=== PATIENT | male | born 1955 | race Caucasian/White ===

== ENCOUNTER 2023-05-02 14:21 | Inpatient (IN) | payer OTHER, SELFPAY ==
[2023-05-02] VITALS (14 sets, daily range): BP systolic 162–223; BP diastolic 60–78; PULSE 69–92; RESP 14–26; TEMP 36.8–38; O2SAT 88–97; BMI 49.5; BMI 48.2
[2023-05-02 14:40] LABS: Glucometer 46 mg/dL (74-106)
--- NOTE | 2023-05-02 14:44 | ED_ITS ---
HPI - General Adult General Chief complaint: Extremity Problem, Nontraumatic Stated complaint: RED SWOLLEN PAIN IN FOOT Time Seen by Provider: 05/02/23 14:32 Source: patient Mode of arrival: ambulance History of Present Illness HPI narrative: left leg infection that is getting worse despite antibiotics. He was brought to us by EMS complaining that his left lower leg is more swollen and that the redness is spreading. He had [facility] and had completed the full course without any improvement, he told us. He denied any systemic symptoms such as fever or vomiting. No left calf or knee pain. PMHx includes IDDM and he told us that he had stopped his insulin for 3-4 days because my sugars have been OK . He restarted his insulin last night around 830pm and this morning his sugar dropped to 46. He ate and said that after that he felt fine . But when the patient arrived his glucose was only 46 once again. he was fed and given juice to drink. PMHx includes remote history of DVT. He currently takes warfarin. Most of his care is through the [place]. Related Data Home Medications Medication Instructions Recorded Confirmed budesonide-formoterol HFA 80 2 inh inhalation Q12H 05/02/23 05/02/23 mcg-4.5 mcg/actuation aerosol inhaler (Symbicort) chlorthalidone 50 mg tablet 50 mg PO DAILY 05/02/23 05/02/23 glipizide 10 mg tablet 10 mg PO DAILY 05/02/23 05/02/23 lisinopril 40 mg tablet 40 mg PO DAILY 05/02/23 05/02/23 metoprolol tartrate 25 mg tablet 12.5 mg PO BID 05/02/23 05/02/23 omeprazole 20 mg tablet,delayed 20 mg PO DAILY 05/02/23 05/02/23 release warfarin 5 mg tablet 5 mg PO DAILY 05/02/23 05/02/23 Allergies Allergy/AdvReac Type Severity Reaction Status Date / Time adhesive tape Allergy Mild Verified 05/02/23 14:23 [facility] Social History Smoking status: Current every day smoker Exam Narrative Exam Narrative: Nurses notes and vital signs reviewed and patient is not hypoxic. afebrile General: Morbidly obese elderly male. Well-appearing and in no apparent distress. Skin: Warm, dry, no pallor noted. Left lower leg has a deep, erythematous skin discoloration extending from the toes of the left foot, proximally, to the proximal left lower leg just distal to the left knee. Head: Normocephalic, atraumatic. Neck: Supple, non-tender. Eye: Pupils are equal, round and EOMI. No scleral icterus. Ears, Nose, Mouth, and Throat: Oral mucosa is moist Cardiovascular: Regular Rate and Rhythm without murmur, gallop or rub. Respiratory: No accessory muscle use or respiratory distress. Lungs are clear to auscultation, no wheezing, rales or rhonchi Musculoskeletal: normal ROM, no calf or popliteal tenderness. skin color of left lower leg is described above. Neurological: A&O x4. No cranial nerve dysfunction observed. No truncal ataxia. Moves all extremities. Sensation intact. Psychiatric: Cooperative and interactive. Normal mood and affect. Constitutional Vital Signs - 24 hr 05/02/23 14:23 Temperature 98.3 F Pulse Rate [Monitor] 69 Respiratory Rate 20 Blood Pressure [Right Arm] 162/78 H Pulse Oximetry 97 Oxygen Delivery Method Room Air Course Vital Signs Vital signs: Vital Signs Temperature 98.3 F 05/02/23 14:23 Pulse Rate 69 05/02/23 14:23 Respiratory Rate 20 05/02/23 14:23 Blood Pressure 162/78 H 05/02/23 14:23 Pulse Oximetry 97 05/02/23 14:23 Oxygen Delivery Method Room Air 05/02/23 14:23 Temperature 98.3 F 05/02/23 14:23 Pulse Rate 69 05/02/23 14:23 Respiratory Rate 20 05/02/23 14:23 Blood Pressure 162/78 H 05/02/23 14:23 Pulse Oximetry 97 05/02/23 14:23 Oxygen Delivery Method Room Air 05/02/23 14:23 Medical Decision Making MDM Narrative Medical decision making narrative: peripheral IV ordered to be established so that he could get the IV Zosyn that I ordered. There was a lot of difficulty getting IV access but the nurses were able to get a 24G peripheral IV. Blood ordered to be drawn and sent for testing including Lactate and blood cultures. Left LE US performed to evaluate for DVT - no DVT found. He takes warfarin daily and INR was checked - elevated greater than 3 - coumadin will be held tomorrow. Patient failed out-patient treatment with oral Keflex, his condition worsened and he will need to be admitted. Call placed to Dr Abbott, the on-call hospitalist, to discuss admission. After reviewing the patient's case she agreed to admit the patient, in-patient, med/surg floor. Patient made aware and was agreeable to admission. Medical Records Medical records reviewed: Yes I reviewed the patient's medical records Lab Data Lab results reviewed: Yes I reviewed the patient's lab results Labs: Lab Results 05/02/23 05/02/23 05/02/23 Range/Units 14:30 14:57 15:18 WBC 11.3 H (4.0-11.0) 10^3/uL RBC 4.68 L (4.70-6.10) 10^6/uL Hgb 13.1 L (14.0-18.0) g/dL Hct 42.1 (42.0-54.0) % MCV 90.0 (80.0-94.0) fL MCH 28.0 (25.9-34.0) pg MCHC 31.1 (29.9-35.2) g/dL RDW 16.4 H (11.0-15.0) % Plt Count 165 (150-450) 10^3/uL MPV 9.0 L (9.5-13.5) fL Neut % (Auto) 88.6 H (43.0-75.0) % Lymph % (Auto) 3.3 L (20.5-60.0) % [place] % (Auto) 7.3 (1.7-12.0) % Eos % (Auto) 0.0 L (0.9-7.0) % Baso % (Auto) 0.2 (0.2-2.0) % Neut # (Auto) 10.0 H (1.4-6.5) 10^3/uL Lymph # (Auto) 0.4 L (1.2-3.8) 10^3/uL [place] # (Auto) 0.8 (0.3-0.8) 10^3/uL Eos # (Auto) 0.0 (0.0-0.7) 10^3/uL Baso # (Auto) 0.0 (0.0-0.1) 10^3/uL Abs Immat Gran (auto) 0.07 H (0.00-0.03) 10^3/uL Imm/Tot Granulo (auto) 0.6 H (0.0-0.5) % PT 35.9 H (9.0-11.6) sec INR 3.64 APTT 57.2 H* (22.3-36.2) sec Sodium 136 (136-145) mmol/L Potassium 5.2 H (3.5-5.1) mmol/L Chloride 103 (98-107) mmol/L Carbon Dioxide 23.2 (21.0-32.0) mmol/L Anion Gap 15.0 BUN 55.0 H (7.0-18.0) mg/dL Creatinine 4.20 H (0.70-1.30) mg/dL Est GFR ( Amer) 17 L (>=60) Est GFR (Non-Af Amer) 14 L (>=60) BUN/Creatinine Ratio 13.1 Glucose 81 (74-106) mg/dL Lactate 2.1 H (0.4-2.0) mmol/L Calcium 8.9 (8.5-10.1) mg/dL Total Bilirubin 0.7 (0.2-1.0) mg/dL AST 24 (15-37) U/L ALT 22 (16-63) U/L Alkaline Phosphatase 70 (46-116) U/L Total Protein 6.8 (6.4-8.2) g/dL Albumin 2.1 L (3.4-5.0) g/dL Globulin 4.7 g/dL Albumin/Globulin Ratio 0.4 POC Glucose 46 L* 54 L (74-106) mg/dL 05/02/23 Range/Units 15:59 WBC (4.0-11.0) 10^3/uL RBC (4.70-6.10) 10^6/uL Hgb (14.0-18.0) g/dL Hct (42.0-54.0) % MCV (80.0-94.0) fL MCH (25.9-34.0) pg MCHC (29.9-35.2) g/dL RDW (11.0-15.0) % Plt Count (150-450) 10^3/uL MPV (9.5-13.5) fL Neut % (Auto) (43.0-75.0) % Lymph % (Auto) (20.5-60.0) % [place] % (Auto) (1.7-12.0) % Eos % (Auto) (0.9-7.0) % Baso % (Auto) (0.2-2.0) % Neut # (Auto) (1.4-6.5) 10^3/uL Lymph # (Auto) (1.2-3.8) 10^3/uL [place] # (Auto) (0.3-0.8) 10^3/uL Eos # (Auto) (0.0-0.7) 10^3/uL Baso # (Auto) (0.0-0.1) 10^3/uL Abs Immat Gran (auto) (0.00-0.03) 10^3/uL Imm/Tot Granulo (auto) (0.0-0.5) % PT (9.0-11.6) sec INR APTT (22.3-36.2) sec Sodium (136-145) mmol/L Potassium (3.5-5.1) mmol/L Chloride (98-107) mmol/L Carbon Dioxide (21.0-32.0) mmol/L Anion Gap BUN (7.0-18.0) mg/dL Creatinine (0.70-1.30) mg/dL Est GFR ( Amer) (>=60) Est GFR (Non-Af Amer) (>=60) BUN/Creatinine Ratio Glucose (74-106) mg/dL Lactate (0.4-2.0) mmol/L Calcium (8.5-10.1) mg/dL Total Bilirubin (0.2-1.0) mg/dL AST (15-37) U/L ALT (16-63) U/L Alkaline Phosphatase (46-116) U/L Total Protein (6.4-8.2) g/dL Albumin (3.4-5.0) g/dL Globulin g/dL Albumin/Globulin Ratio POC Glucose 117 H (74-106) mg/dL Imaging Data left LE USMAN US: Radiologist's impression: Patient Name: TERYR DOMINGUEZ MRN: [facility]:[id number] date: 1955 Sex: M Assigned Patient Location: ED.MAIN Current Patient Location: ER Accession/Order Number: [id number] Exam Date: 05/02/2023 16:09 Report Date: 05/02/2023 16:44 At the request of: GABY LEVINE Procedure: US venous doppler LE LT EXAM: US venous doppler LE LT HISTORY: left LE cellulitis, swelling COMPARISON: None. TECHNIQUE: Evaluation of the deep veins of the left lower extremity was performed utilizing B-mode, color flow and spectral analysis. FINDINGS: The visualized vessels comprising the deep venous systems from the common femoral vein through the calf veins demonstrate appropriate compressibility, spontaneous color Doppler flow, and augmentation of flow on spectral Doppler with distal compression. Additional findings: Lower extremity edema is noted. IMPRESSION: No sonographic evidence of deep venous thrombosis of the left lower extremity. Lower extremity edema, may represent cellulitis. Electronically authenticated by: KIERSTEN HIDALGO Date: 05/02/2023 16:44 Discharge Plan Discharge Chief Complaint: Extremity Problem, Nontraumatic Clinical Impression: Cellulitis, Hypoglycemia Patient Disposition: Admitted As Inpatient Time of Disposition Decision: 16:18
[2023-05-02 14:59] LABS: Glucometer 54 mg/dL (74-106)
[2023-05-02] MEDS: PIPERACILLIN SODIUM/TAZOBACTAM 4.5 GM in 0.9 % SODIUM CHLORIDE 50 ML IV (15:19)
[2023-05-02 15:26] LABS: Basophils Percent Auto 0.2 % (0.2-2.0); Hematocrit 42.1 % (42.0-54.0); Hemoglobin 13.1 g/dL (14.0-18.0); Immature Granulocytes Abs Auto 0.07 10^3/uL (0.00-0.03); Immature Granulocytes Pct Auto 0.6 % (0.0-0.5); Lymphocytes Absolute Auto 0.4 10^3/uL (1.2-3.8); Lymphocytes Percent Auto 3.3 % (20.5-60.0); Mean Corpuscular HGB Conc 31.1 g/dL (29.9-35.2); Monocytes Absolute Auto 0.8 10^3/uL (0.3-0.8); Monocytes Percent Auto 7.3 % (1.7-12.0); Neutrophils Percent Auto 88.6 % (43.0-75.0); Platelet Count 165 10^3/uL (150-450); Red Blood Count 4.68 10^6/uL (4.70-6.10); Red Cell Distribution Width 16.4 % (11.0-15.0); White Blood Count 11.3 10^3/uL (4.0-11.0)
--- NOTE | 2023-05-02 15:44 | US_ITS ---
[facility] [place] [id number] Patient Name: TERRY DOMINGUEZ MRN: [id number] date: 1955 Sex: M Assigned Patient Location: ED.MAIN Current Patient Location: ER Accession/Order Number: [id number] Exam Date: 05/02/2023 16:09 Report Date: 05/02/2023 16:44 At the request of: GABY LEVINE Procedure: US venous doppler LE LT EXAM: US venous doppler LE LT HISTORY: left LE cellulitis, swelling COMPARISON: None. TECHNIQUE: Evaluation of the deep veins of the left lower extremity was performed utilizing B-mode, color flow and spectral analysis. FINDINGS: The visualized vessels comprising the deep venous systems from the common femoral vein through the calf veins demonstrate appropriate compressibility, spontaneous color Doppler flow, and augmentation of flow on spectral Doppler with distal compression. Additional findings: Lower extremity edema is noted. IMPRESSION: No sonographic evidence of deep venous thrombosis of the left lower extremity. Lower extremity edema, may represent cellulitis. Electronically authenticated by: KIERSTEN HIDALGO Date: 05/02/2023 16:44
[2023-05-02 15:47] LABS: Lactate/Lactic Acid 2.1 mmol/L (0.4-2.0)
[2023-05-02] MEDS: DEXTROSE 50 %-WATER 25 GM/50 ML SYRINGE IV (15:51)
[2023-05-02 16:02] LABS: Alanine Aminotransferase 22 U/L (16-63); Albumin Globulin Ratio 0.4; Albumin Level 2.1 g/dL (3.4-5.0); Alkaline Phosphatase 70 U/L (46-116); Aspartate Amino Transferase 24 U/L (15-37); BUN Creatinine Ratio 13.1; Bilirubin Total 0.7 mg/dL (0.2-1.0); Calcium 8.9 mg/dL (8.5-10.1); Carbon Dioxide 23.2 mmol/L (21.0-32.0); Chloride 103 mmol/L (98-107); Estimated GFR (African America 17 (>=60); Estimated GFR (Non-African Ame 14 (>=60); Globulin 4.7 g/dL; Glucose 81 mg/dL (74-106); Potassium 5.2 mmol/L (3.5-5.1); Sodium 136 mmol/L (136-145); Total Protein 6.8 g/dL (6.4-8.2)
[2023-05-02 16:03] LABS: Glucometer 117 mg/dL (74-106)
[2023-05-02 16:40] LABS: INR 3.64; Prothrombin Time 35.9 sec (9.0-11.6)
[2023-05-02 16:42] LABS: Partial Thromboplastin Time 57.2 sec (22.3-36.2)
[2023-05-02] MEDS: LACTATED RINGER'S SOLUTION 1,000 ML 125 ML IV (18:32)
--- NOTE | 2023-05-02 19:20 | P.PN_ITS ---
Progress Note: Subjective Subjective Interval history: LLE swelling, low BGL HPI: this is a 68 yo male who presents with above complaints. Patient developed left leg infection that is getting worse despite Keflex prescribed at [place]..? He was brought to us by EMS complaining that his left lower leg is more swollen and that the redness is spreading.? He had completed the full course without any improvement, he told us.? He denied any systemic symptoms such as fever or vomiting.? No left calf or knee pain.? PMHx includes IDDM and he told us that he had stopped his insulin for 3-4 days because my sugars have been OK .? He restarted his insulin last night around 830pm and this morning his sugar dropped to 46.? He ate and said that after that he felt fine . IN ED on arrival his glucose was only 46 once again.? He was fed and given juice to drink. He also found to be hyperkalemia. After initial Rx decision was made to admit him to the hospit. Exam Narrative Exam Narrative: NAD, neck - supple, thyroid not enlarged, LN not palpated CTA B/L S1 S2 ABd - S/NT/ND/+BS EXT -no clubbing ro cyanosis. ++ LLE edema Neuro - CN II-XI grossly intact, no focal deficites NOrmal affect Constitutional Vital Signs - 24 hr 05/02/23 14:23 05/02/23 17:01 05/02/23 18:23 Temperature 98.3 F 98.3 F Pulse Rate Pulse Rate [Monitor] 69 76 84 Respiratory Rate 20 20 Blood Pressure [Right Arm] 162/78 H 170/60 H Pulse Oximetry 97 92 L 90 L Oxygen Delivery Method Room Air Room Air Room Air 05/02/23 18:28 Temperature 98.6 F Pulse Rate 84 Pulse Rate [Monitor] Respiratory Rate 20 Blood Pressure [Right Arm] 217/69 H Pulse Oximetry 91 L Oxygen Delivery Method Room Air Progress Note: Objective Labs Labs: Short CBC 05/02/23 Range/Units 15:18 WBC 11.3 H (4.0-11.0) 10^3/uL Hgb 13.1 L (14.0-18.0) g/dL Hct 42.1 (42.0-54.0) % Plt Count 165 (150-450) 10^3/uL BMP 05/02/23 15:18 Sodium 136 Potassium 5.2 H Chloride 103 Carbon Dioxide 23.2 BUN 55.0 H Creatinine 4.20 H Glucose 81 Calcium 8.9 Liver Function 05/02/23 Range/Units 15:18 Total Bilirubin 0.7 (0.2-1.0) mg/dL AST 24 (15-37) U/L ALT 22 (16-63) U/L Alkaline Phosphatase 70 (46-116) U/L Albumin 2.1 L (3.4-5.0) g/dL Progress Note: A&P Assessment and Plan (1) SHAHEEN (acute kidney injury): Assessment and Plan: started on IVF - monitor BUN/CR avoid use of nephrotoxic medications (2) Hyperkalemia: Assessment and Plan: Hopefuly going to resolve with use of insulin (3) Cellulitis: Assessment and Plan: started on empiric, broad spectrum ABxs Patient fail OP ABxs management (4) Hypoglycemia: Assessment and Plan: hypoglycemia protocol in place (5) Diabetes: Assessment and Plan: accuchecks, TID AC + HS, cover with ISS (6) HTN (hypertension): Assessment and Plan: resume home Rx, adjust as needed (7) Morbid obesity: Assessment and Plan: differ for OP management (8) Venous (peripheral) insufficiency: Assessment and Plan: differ for OP management Telemedicine Attestation Telemedicine Attestation I conducted this encounter from [place][] via secure live, [id number] video conference with the patient, CHARGE TEST-CHARGES located at [facility] with [Cellulitis]. Prior to the interview, the risks and benefits of telemedicine were discussed with the patient and verbal consent was obtained.
[2023-05-02] MEDS: ALBUTEROL SULFATE 2.5 MG/3 ML VIAL NEB IH (21:59)
[2023-05-02] MEDS: BUDESONIDE 0.5 MG/2 ML AMPULE NEB IH (21:59)
[2023-05-02 22:14] LABS: Glucometer 63 mg/dL (74-106)
[2023-05-02] MEDS: METOPROLOL TARTRATE 25 MG TABLET 12.5 MG PO (22:34)
[2023-05-02 22:40] LABS: Glucometer 73 mg/dL (74-106)
[2023-05-02] MEDS: HYDRALAZINE HCL 20 MG/ML VIAL 10 MG IVP (22:42)
[2023-05-02] MEDS: PANTOPRAZOLE SODIUM 40 MG VIAL IV (23:28)
[2023-05-02] MEDS: LINEZOLID IN DEXTROSE 5% 600 MG/300 ML PIGGYBACK 300 MG IV (23:28)
[2023-05-02] MEDS: ACETAMINOPHEN 325 MG TABLET 650 MG PO (23:39)
[2023-05-03] VITALS (25 sets, daily range): BP systolic 145–160; BP diastolic 63–77; PULSE 59–84; RESP 18–22; TEMP 36.7–37.1; O2SAT 90–98; BMI 48.2
[2023-05-03] MEDS: PIPERACILLIN SODIUM/TAZOBACTAM 2.25 GM in 0.9 % SODIUM CHLORIDE 50 ML IV ×3 (00:56→22:18)
--- NOTE | 2023-05-03 01:17 | PC.NURSE ---
Pt BP was elevated, admin of hydralizine brought down to 162/72 from 223/76
[2023-05-03 05:00] LABS: Basophils Percent Auto 0.2 % (0.2-2.0); Eosinophils Percent Auto 0.2 % (0.9-7.0); Hemoglobin 11.2 g/dL (14.0-18.0); Immature Granulocytes Abs Auto 0.11 10^3/uL (0.00-0.03); Immature Granulocytes Pct Auto 0.9 % (0.0-0.5); Lymphocytes Absolute Auto 0.7 10^3/uL (1.2-3.8); Lymphocytes Percent Auto 5.1 % (20.5-60.0); Mean Corpuscular HGB Conc 31.1 g/dL (29.9-35.2); Mean Platelet Volume 9.9 fL (9.5-13.5); Monocytes Absolute Auto 1.1 10^3/uL (0.3-0.8); Monocytes Percent Auto 8.2 % (1.7-12.0); Neutrophils Percent Auto 85.4 % (43.0-75.0); Platelet Count 158 10^3/uL (150-450); Red Cell Distribution Width 16.3 % (11.0-15.0); White Blood Count 12.8 10^3/uL (4.0-11.0)
[2023-05-03] MEDS: ALBUTEROL SULFATE 2.5 MG/3 ML VIAL NEB IH ×4 (05:00→20:13)
[2023-05-03 05:17] LABS: Estimated Average Glucose 134 mg/dL; Glycohemoglobin A1C 6.3 % (4.5-6.2)
[2023-05-03 05:25] LABS: Alanine Aminotransferase 21 U/L (16-63); Albumin Globulin Ratio 0.4; Albumin Level 1.5 g/dL (3.4-5.0); Alkaline Phosphatase 60 U/L (46-116); Anion Gap 11.8; Aspartate Amino Transferase 32 U/L (15-37); BUN Creatinine Ratio 11.9; Bilirubin Total 0.8 mg/dL (0.2-1.0); Carbon Dioxide 23.9 mmol/L (21.0-32.0); Chloride 105 mmol/L (98-107); Estimated GFR (African America 17 (>=60); Estimated GFR (Non-African Ame 14 (>=60); Glucose 142 mg/dL (74-106); Potassium 4.7 mmol/L (3.5-5.1); Sodium 136 mmol/L (136-145); Total Protein 5.5 g/dL (6.4-8.2)
[2023-05-03 05:36] LABS: INR 3.44
[2023-05-03] MEDS: LACTATED RINGER'S SOLUTION 1,000 ML 125 ML IV ×3 (07:44→22:19)
--- NOTE | 2023-05-03 08:24 | P.HP_ITS ---
H&P: HPI History of Present Illness Chief complaint: RED SWOLLEN FOOT, LT LOWER EXTREMITY CELLULITIS Narrative: patient is a 5-year-old male with past medical history of type 2 diabetes insulin-dependent, chronic kidney disease stage IV, history of blood clots and is on Coumadin therapy, GERD. Patient presented too the Emergency Room yesterday with complaints of significant left lower extremity redness swelling and pain. He denies any fevers or chills but states that his left leg has been difficult to walk on. He gets most of his care from the [place] and that's where he sees his primary care physician he also sees a process environmental technician. He is a smoker and smokes about one pack per day but in the last week has cut down to half a pack per day. He has been using Lantus twenty units once a day and over the last four days has not taken any insulin because his sugars have been lower. The night prior to coming to the Emergency Room he did decide to take his Lantus and woke up and his sugars were in the 40s. They did give him some orange juice and some glucose to bring his sugars up. This morning he reports improvement of the symptoms of the redness and rash of his left lower extremity. He denies any fevers or chills. Review of Systems ROS Narrative ROS: a complete review of systems were reviewed with patient and are positive as below or listed in History of Chief Complaint. General: no fever, chills, night sweats Head: no headache, trauma, visual changes, nausea or vomiting Skin: left lower extremity rash, itching and blisters Eyes: no blurriness of vision Ears: no reported hearing loss, vertigo, earache, or tinnitus Throat: no sore throat, hoarseness, swelling of neck, or tongue pain Heart: no chest pain Lungs: shortness of breath or cough GI: no diarrhea or vomiting/nausea Urinary: no urinary urgency, frequency or pain Neuro: no numbness or tingling HEM: no bleeding issues or bruising ENDO: no thyroid problems Psych: no anxiety or depression PFSH PFSH Social History Smoking status: Current every day smoker Meds Home Medications and Allergies Home Medications Medication Instructions Recorded Confirmed Type Iro-Plex (iron polysaccharide) See Rx Instructions .Route .COMPLEX 05/02/23 05/02/23 History atorvastatin 40 mg tablet 40 mg PO DAILY 05/02/23 05/02/23 History budesonide-formoterol HFA 80 2 inh inhalation Q12H 05/02/23 05/02/23 History mcg-4.5 mcg/actuation aerosol inhaler (Symbicort) glipizide 10 mg tablet 20 mg PO DAILY 05/02/23 05/02/23 History hydralazine 10 mg tablet 10 mg PO BID 05/02/23 05/02/23 History lisinopril 40 mg tablet 40 mg PO DAILY 05/02/23 05/02/23 History metoprolol tartrate 25 mg tablet 12.5 mg PO BID 05/02/23 05/02/23 History torsemide 20 mg tablet (Soaanz) 20 mg PO DAILY 05/02/23 05/02/23 History warfarin 5 mg tablet 5 mg PO DAILY 05/02/23 05/02/23 History Allergies Allergy/AdvReac Type Severity Reaction Status Date / Time adhesive tape Allergy Mild Verified 05/02/23 14:23 Exam Narrative Exam Narrative: General: Patient is alert, and oriented to person, place and time with normal affect, proper hygiene Skin: patient has bilateral stasis dermatitis with +1 pitting edema, erythema with blisters formation on the left lower extremity extending from below the knee to the top of left foot. Head: atraumatic, acephalic Eyes: PERRLA, no nystagmus present, conjunctiva clear, no scleral icterus Ears: normal gross auditory acuity Nose: symmetric, no discharge, no maxillary or frontal sinus tenderness Heart: Normal rate and rhythm, no murmurs/rubs/gallops Lungs: audible wheezes, no crackles and normal breath sounds all lung becerra Abdomen: Normal audible bowel sounds, no distension, No palpable masses, no organomegaly, no rebound/guarding/ or rigidity Musculoskeletal: muscle atrophy noted, ROM is limited due to being in hospital bed, no swelling bilateral lower extremities Vascular: Normal carotid, radial, femoral, posterior tibial, and dorsalis pedis pulses Lymph: no supraclavicular, axillary, or anterior/posterior cervical adenopathy Neuro: CN II-X grossly intact, normal sensation upper and lower extremities Constitutional Vital Signs - 24 hr 05/02/23 14:23 05/02/23 17:01 05/02/23 18:23 Temperature 98.3 F 98.3 F Pulse Rate Pulse Rate [Monitor] 69 76 84 Respiratory Rate 20 20 Blood Pressure Blood Pressure [Right Arm] 162/78 H 170/60 H Pulse Oximetry 97 92 L 90 L Oxygen Delivery Method Room Air Room Air Room Air Oxygen Delivery Flow Rate 05/02/23 18:28 05/02/23 19:18 05/02/23 18:23 Temperature 98.6 F Pulse Rate 84 80 Pulse Rate [Monitor] Respiratory Rate 20 14 Blood Pressure Blood Pressure [Right Arm] 217/69 H Pulse Oximetry 91 L Oxygen Delivery Method Room Air Oxygen Delivery Flow Rate 05/02/23 20:00 05/02/23 19:00 05/02/23 21:58 Temperature 100.4 F H Pulse Rate 80 83 87 Pulse Rate [Monitor] Respiratory Rate 20 Blood Pressure Blood Pressure [Right Arm] 223/72 H Pulse Oximetry 91 L Oxygen Delivery Method Room Air Oxygen Delivery Flow Rate 05/02/23 21:59 05/02/23 22:07 05/02/23 22:07 Temperature Pulse Rate 89 89 Pulse Rate [Monitor] Respiratory Rate 24 Blood Pressure Blood Pressure [Right Arm] Pulse Oximetry 88 L 88 L Oxygen Delivery Method Room Air Room Air Oxygen Delivery Flow Rate 05/02/23 22:22 05/02/23 22:42 05/02/23 22:06 Temperature 98.9 F Pulse Rate 88 92 H Pulse Rate [Monitor] Respiratory Rate 26 H Blood Pressure 195/65 H Blood Pressure [Right Arm] Pulse Oximetry 91 L Oxygen Delivery Method Nasal Cannula Oxygen Delivery Flow Rate 2 05/03/23 00:00 05/03/23 02:00 05/03/23 04:00 Temperature Pulse Rate 84 73 69 Pulse Rate [Monitor] Respiratory Rate Blood Pressure Blood Pressure [Right Arm] Pulse Oximetry Oxygen Delivery Method Oxygen Delivery Flow Rate 05/03/23 05:00 05/03/23 05:13 05/02/23 20:30 Temperature Pulse Rate 70 71 Pulse Rate [Monitor] 84 Respiratory Rate 20 18 Blood Pressure Blood Pressure [Right Arm] Pulse Oximetry 95 Oxygen Delivery Method Oxygen Delivery Flow Rate 05/03/23 05:54 05/03/23 06:00 05/03/23 08:05 Temperature 98.4 F Pulse Rate 73 74 68 Pulse Rate [Monitor] Respiratory Rate 22 Blood Pressure Blood Pressure [Right Arm] 158/63 H Pulse Oximetry 92 L Oxygen Delivery Method Room Air Oxygen Delivery Flow Rate 2 Results Labs Labs: Short CBC 05/02/23 05/03/23 Range/Units 15:18 04:17 WBC 11.3 H 12.8 H (4.0-11.0) 10^3/uL Hgb 13.1 L 11.2 L (14.0-18.0) g/dL Hct 42.1 36.0 L (42.0-54.0) % Plt Count 165 158 (150-450) 10^3/uL BMP 05/02/23 05/03/23 15:18 04:17 Sodium 136 136 Potassium 5.2 H 4.7 Chloride 103 105 Carbon Dioxide 23.2 23.9 BUN 55.0 H 51.0 H Creatinine 4.20 H 4.28 H Glucose 81 142 H Calcium 8.9 8.0 L Liver Function 05/02/23 05/03/23 Range/Units 15:18 04:17 Total Bilirubin 0.7 0.8 (0.2-1.0) mg/dL AST 24 32 (15-37) U/L ALT 22 21 (16-63) U/L Alkaline Phosphatase 70 60 (46-116) U/L Albumin 2.1 L 1.5 L (3.4-5.0) g/dL Assessment and Plan Assessment and Plan (1) Left leg cellulitis: Assessment and Plan: patient was placed on Zyvox and Zosyn secondary to renal impairment and both of these were renally dosed. The area on the left lower extremity was demarcated and appears to be receding this morning. White blood cell count 12.8 and patient has remained afebrile. (2) Acute kidney injury superimposed on chronic kidney disease: Assessment and Plan: patient follows with a process environmental technician, will get documentation on patient's baseline creatinine today is 4.28, GFR 14; patient is not on dialysis Stage IV chronic kidney disease most likely (3) Hyperkalemia: Assessment and Plan: resolved with IVF (4) Hypoglycemia: Assessment and Plan: after home lantus, hold for now, SSI insulin only, ha1c 6.3 (5) Diabetes: Assessment and Plan: hold glipizide and lantus, ssi only based on ha1c this is controlled (6) HTN (hypertension): Assessment and Plan: continue hydralazine, lisinopril, metoprolol (7) Morbid obesity: (8) Venous (peripheral) insufficiency: Assessment and Plan: history of multiple DVT's on coumadin therapy and therapeutic with INR 3.44 continue home dosage Plan patient is a full code patient is inpatient and is expected to stay more than 2 midnights continue coumadin therapy for DVT prophylaxis and is therapeutic
[2023-05-03] MEDS: METOPROLOL TARTRATE 25 MG TABLET 12.5 MG PO ×2 (09:07→20:31)
[2023-05-03] MEDS: LINEZOLID IN DEXTROSE 5% 600 MG/300 ML PIGGYBACK 300 MG IV (10:26)
--- NOTE | 2023-05-03 10:39 | SWNOTE1 ---
SW met with pt to discuss dc needs. Pt does live at home with his daughter. Pt uses a walker at home and it is a 1 story home with a few steps to get in. Pt does not have any HH coming in at this time. He does follow up at the [place] [facility]. Pt denies having any needs or concerns at this time. SW to follow as needed. SW reviewed IMM form with pt. He voiced understanding, no questions/concerns. Pt signed form, original given to pt and copy placed on chart.
[2023-05-03 11:19] LABS: Glucometer 128 mg/dL (74-106)
[2023-05-03] MEDS: BUDESONIDE 0.5 MG/2 ML AMPULE NEB IH ×2 (11:19→20:14)
--- NOTE | 2023-05-03 11:25 | RESP.RT ---
patient placed on room air
--- NOTE | 2023-05-03 12:35 | CM.NOTE ---
Rounds made with Dr. Abbott. No plan for discharge today.
--- NOTE | 2023-05-03 12:49 | SWNOTE1 ---
SW looked over therapy notes and possible HH or skilled recommended.
--- NOTE | 2023-05-03 13:45 | DIETREC ---
Nutrition Recommendations: 1. Check phosphorus level. 2. Change diet to 1800 kcal and 2 gm Sodium. Reviewed with
--- NOTE | 2023-05-03 14:37 | SWNOTE1 ---
FRANKLIN spoke with pt again about his discharge plans. SW let him know that it is recommended pt goes to long term facility for rehab to get stronger, or at least have some HH coming in. FRANKLIN explained the difference between them both and how insurance would cover these options. At this time pt does not want to go to rehab at long term facility, he stated once his foot feels better he will be able to walk around with his walker. Pt is refusing to go skilled at this time. Pt is more open to home health coming in. FRANKLIN reviewed the star ratings from medicare.gov and he would like to use [facility]. FRANKLIN sent referral to [facility].
--- NOTE | 2023-05-03 14:52 | SWNOTE1 ---
Pt does have home cpap as well, he did bring it in with him. No home oxygen.
[2023-05-03 15:57] LABS: Glucometer 138 mg/dL (74-106)
--- NOTE | 2023-05-03 16:02 | RESP.RT ---
heart rate 63
[2023-05-03] MEDS: WARFARIN SODIUM 5 MG TABLET PO (16:26)
[2023-05-03 19:43] LABS: Glucometer 137 mg/dL (74-106)
[2023-05-03] MEDS: LINEZOLID IN DEXTROSE 5% 600 MG/300 ML PIGGYBACK 150 MG IV (20:31)
[2023-05-03] MEDS: PANTOPRAZOLE SODIUM 40 MG VIAL IV (22:18)
[2023-05-04] VITALS (25 sets, daily range): BP systolic 145–179; BP diastolic 52–74; PULSE 52–85; RESP 18–24; TEMP 36.1–36.7; O2SAT 90–97
[2023-05-04 04:56] LABS: Basophils Absolute Auto 0.1 10^3/uL (0.0-0.1); Basophils Percent Auto 0.5 % (0.2-2.0); Eosinophils Absolute Auto 0.1 10^3/uL (0.0-0.7); Hematocrit 35.3 % (42.0-54.0); Hemoglobin 11.1 g/dL (14.0-18.0); Immature Granulocytes Abs Auto 0.06 10^3/uL (0.00-0.03); Immature Granulocytes Pct Auto 0.6 % (0.0-0.5); Lymphocytes Absolute Auto 0.6 10^3/uL (1.2-3.8); Lymphocytes Percent Auto 5.4 % (20.5-60.0); Mean Corpuscular HGB Conc 31.4 g/dL (29.9-35.2); Mean Corpuscular Volume 88.9 fL (80.0-94.0); Monocytes Absolute Auto 0.8 10^3/uL (0.3-0.8); Monocytes Percent Auto 7.4 % (1.7-12.0); Neutrophils Absolute Auto 9.1 10^3/uL (1.4-6.5); Neutrophils Percent Auto 85.1 % (43.0-75.0); Platelet Count 154 10^3/uL (150-450); Red Blood Count 3.97 10^6/uL (4.70-6.10); Red Cell Distribution Width 16.3 % (11.0-15.0); White Blood Count 10.7 10^3/uL (4.0-11.0)
[2023-05-04] MEDS: ALBUTEROL SULFATE 2.5 MG/3 ML VIAL NEB IH ×4 (04:56→20:10)
[2023-05-04] MEDS: PIPERACILLIN SODIUM/TAZOBACTAM 2.25 GM in 0.9 % SODIUM CHLORIDE 50 ML IV (05:00)
[2023-05-04 05:17] LABS: INR 3.32; Prothrombin Time 32.9 sec (9.0-11.6)
[2023-05-04 05:18] LABS: Alanine Aminotransferase 31 U/L (16-63); Albumin Globulin Ratio 0.3; Albumin Level 1.5 g/dL (3.4-5.0); Alkaline Phosphatase 71 U/L (46-116); Anion Gap 12.9; Aspartate Amino Transferase 45 U/L (15-37); BUN Creatinine Ratio 11.5; Bilirubin Total 0.8 mg/dL (0.2-1.0); Carbon Dioxide 22.8 mmol/L (21.0-32.0); Chloride 105 mmol/L (98-107); Estimated GFR (African America 18 (>=60); Estimated GFR (Non-African Ame 15 (>=60); Globulin 4.3 g/dL; Glucose 95 mg/dL (74-106); Potassium 4.7 mmol/L (3.5-5.1); Sodium 136 mmol/L (136-145); Total Protein 5.8 g/dL (6.4-8.2)
--- NOTE | 2023-05-04 07:20 | PC.NURSE ---
Lab draw obtained per Caryn Grande
[2023-05-04] MEDS: LINEZOLID IN DEXTROSE 5% 600 MG/300 ML PIGGYBACK 200 MG IV ×2 (08:23→20:35)
[2023-05-04] MEDS: METOPROLOL TARTRATE 25 MG TABLET 12.5 MG PO ×2 (08:23→20:36)
[2023-05-04] MEDS: LACTATED RINGER'S SOLUTION 1,000 ML 125 ML IV (08:23)
--- NOTE | 2023-05-04 09:31 | SWNOTE1 ---
SW called and spoke with [facility], they need to know pt's PCP. SW to talk with pt.
--- NOTE | 2023-05-04 09:59 | CM.NOTE ---
Rounding with Dr. Abbott. Staff from [facility] was at bedside, but exited when we arrived. Redness to LLE improving per Dr. Abbott discussion with patient. Antiicpated discharge date is 05/05 with [facility]. Pt. denies any other discharge needs at this time.
[2023-05-04 11:15] LABS: Glucometer 160 mg/dL (74-106)
--- NOTE | 2023-05-04 11:27 | REH.PTDLY ---
Physical Therapy Daily Note PT Daily Note/Assess Start: 05/04/23 11:20 Freq: Status: Active Protocol: Document 05/04/23 11:21 ISIS (Rec: 05/04/23 11:27 [id number] Physical Therapy Daily Note/Assessment Time In 10:50 Time Out 11:17 Pain N/A Pain N/A Subjective Pt reports he can't do much due to infection in one leg and the other being broken. When asked he then explains it 's an old injury. Just infection in L LE is current. Pt talks a lot at first and then agrees to therapy after education. Therapeutic Exercise Minutes (minutes) 6 Therapeutic Exercise Units 0 Therapeutic Exercise Treatment Instructed in seated exs bedside 10x ea for improved strength. Exs included LAQ, hip abd, and marching. Cues to keep pt on task. Therapeutic Activity Minutes (minutes) 8 Therapeutic Activity Units 1 Chair Transfer Ability Contact Guard Assist Therapeutic Activity Comments Pt performs sit to stand transfers 3x during rx. Cues for gait training with RW, taking 4 steps forward and then retro 3x. Pt reports it feels better than he thought it would, but painful towards end in L LE. Pt stands statically for 1 min prior to sitting while he is talking. Total Therapy Minutes 14 Total Physical Therapy Units 1 Daily Note Summary Pt required encouragement and education to participate in therapy. Pt does have improved mobility today with gait with RW, but still limited. Continue to progress gait distance next visit.
--- NOTE | 2023-05-04 11:38 | REH.PTDLY ---
Physical Therapy Daily Note PT Daily Note/Assess Start: 05/04/23 11:20 Freq: Status: Active Protocol: Document 05/04/23 11:21 ISIS (Rec: 05/04/23 11:27 [id number] Physical Therapy Daily Note/Assessment Time In 10:50 Time Out 11:17 Pain N/A Pain N/A Subjective Pt reports he can't do much due to infection in one leg and the other being broken. When asked he then explains it 's an old injury. Just infection in L LE is current. Pt talks a lot at first and then agrees to therapy after education. Therapeutic Exercise Minutes (minutes) 6 Therapeutic Exercise Units 0 Therapeutic Exercise Treatment Instructed in seated exs bedside 10x ea for improved strength. Exs included LAQ, hip abd, and marching. Cues to keep pt on task. Therapeutic Activity Minutes (minutes) 8 Therapeutic Activity Units 1 Chair Transfer Ability Contact Guard Assist Therapeutic Activity Comments Pt performs sit to stand transfers 3x during rx. Cues for gait training with RW, taking 4 steps forward and then retro 3x. Pt reports it feels better than he thought it would, but painful towards end in L LE. Pt stands statically for 1 min prior to sitting while he is talking. Total Therapy Minutes 14 Total Physical Therapy Units 1 Daily Note Summary Pt required encouragement and education to participate in therapy. Pt does have improved mobility today with gait with RW, but still limited. Continue to progress gait distance next visit.
[2023-05-04] MEDS: BUDESONIDE 0.5 MG/2 ML AMPULE NEB IH ×2 (11:43→20:11)
--- NOTE | 2023-05-04 11:46 | RESP.RT ---
Placed pt on room air
--- NOTE | 2023-05-04 13:17 | PM.PN ---
Progress Note: Subjective Subjective Interval history: patient is a 68-year-old male with past medical history of type 2 diabetes insulin-dependent, chronic kidney disease stage IV, history of blood clots and is on Coumadin therapy, GERD. Patient presented too the Emergency Room yesterday with complaints of significant left lower extremity redness swelling and pain. He denies any fevers or chills but states that his left leg has been difficult to walk on. He gets most of his care from the [facility] and that's where he sees his primary care physician he also sees a building supplies salesperson retail. He is a smoker and smokes about one pack per day but in the last week has cut down to half a pack per day. He has been using Lantus twenty units once a day and over the last four days has not taken any insulin because his sugars have been lower. The night prior to coming to the Emergency Room he did decide to take his Lantus and woke up and his sugars were in the 40s. They did give him some orange juice and some glucose to bring his sugars up. This morning he reports improvement of the symptoms of the redness and rash of his left lower extremity. He denies any fevers or chills. Exam Narrative Exam Narrative: General: Patient is alert, and oriented to person, place and time with normal affect, proper hygiene Skin: patient has bilateral stasis dermatitis with +1 pitting edema, erythema with blisters formation on the left lower extremity extending from below the knee to the top of left foot. the redness has receded from the area of demarcation Head: atraumatic, acephalic Eyes: PERRLA, no nystagmus present, conjunctiva clear, no scleral icterus Ears: normal gross auditory acuity Nose: symmetric, no discharge, no maxillary or frontal sinus tenderness Heart: Normal rate and rhythm, no murmurs/rubs/gallops Lungs: audible wheezes, no crackles and normal breath sounds all lung becerra Abdomen: Normal audible bowel sounds, no distension, No palpable masses, no organomegaly, no rebound/guarding/ or rigidity Musculoskeletal: muscle atrophy noted, ROM is limited due to being in hospital bed, no swelling bilateral lower extremities Vascular: Normal carotid, radial, femoral, posterior tibial, and dorsalis pedis pulses Lymph: no supraclavicular, axillary, or anterior/posterior cervical adenopathy Neuro: CN II-X grossly intact, normal sensation upper and lower extremities Constitutional Vital Signs - 24 hr 05/03/23 13:50 05/03/23 14:20 05/03/23 15:54 Temperature 98.8 F Pulse Rate 66 66 61 Respiratory Rate 20 Blood Pressure [Left Arm] 145/77 H Pulse Oximetry 90 L Oxygen Delivery Method Room Air Oxygen Delivery Flow Rate 05/03/23 15:56 05/03/23 16:14 05/03/23 18:03 Temperature Pulse Rate 63 73 Respiratory Rate Blood Pressure [Left Arm] Pulse Oximetry 94 L 94 L Oxygen Delivery Method Room Air Oxygen Delivery Flow Rate 05/03/23 20:13 05/03/23 20:13 05/03/23 20:30 Temperature Pulse Rate 81 80 82 Respiratory Rate 18 20 Blood Pressure [Left Arm] Pulse Oximetry 92 L 98 Oxygen Delivery Method Oxygen Delivery Flow Rate 05/03/23 20:14 05/03/23 20:57 05/03/23 22:28 Temperature 98.1 F Pulse Rate 79 73 Respiratory Rate 20 Blood Pressure [Left Arm] 160/66 H Pulse Oximetry 92 L 91 L Oxygen Delivery Method Room Air Room Air Oxygen Delivery Flow Rate 05/04/23 00:00 05/04/23 02:00 05/04/23 04:00 Temperature Pulse Rate 68 68 68 Respiratory Rate Blood Pressure [Left Arm] Pulse Oximetry Oxygen Delivery Method Oxygen Delivery Flow Rate 05/04/23 04:56 05/04/23 05:02 05/04/23 06:00 Temperature 98.1 F Pulse Rate 69 69 74 Respiratory Rate 18 18 Blood Pressure [Left Arm] 165/52 H Pulse Oximetry 95 95 Oxygen Delivery Method Nasal Cannula Oxygen Delivery Flow Rate 2 05/04/23 07:13 05/04/23 08:00 05/04/23 09:56 Temperature Pulse Rate 76 72 57 L Respiratory Rate Blood Pressure [Left Arm] Pulse Oximetry Oxygen Delivery Method Oxygen Delivery Flow Rate 05/04/23 11:41 05/04/23 11:46 05/04/23 11:52 Temperature Pulse Rate 59 L 58 L Respiratory Rate Blood Pressure [Left Arm] Pulse Oximetry 97 97 Oxygen Delivery Method Nasal Cannula Oxygen Delivery Flow Rate 2 05/04/23 13:12 Temperature Pulse Rate 85 Respiratory Rate Blood Pressure [Left Arm] Pulse Oximetry Oxygen Delivery Method Oxygen Delivery Flow Rate Progress Note: Objective Labs Labs: Short CBC 05/04/23 Range/Units 04:36 WBC 10.7 (4.0-11.0) 10^3/uL Hgb 11.1 L (14.0-18.0) g/dL Hct 35.3 L (42.0-54.0) % Plt Count 154 (150-450) 10^3/uL BMP 05/04/23 04:36 Sodium 136 Potassium 4.7 Chloride 105 Carbon Dioxide 22.8 BUN 47.0 H Creatinine 4.08 H Glucose 95 Calcium 8.0 L Liver Function 05/04/23 Range/Units 04:36 Total Bilirubin 0.8 (0.2-1.0) mg/dL AST 45 H (15-37) U/L ALT 31 (16-63) U/L Alkaline Phosphatase 71 (46-116) U/L Albumin 1.5 L (3.4-5.0) g/dL Progress Note: A&P Assessment and Plan (1) Left leg cellulitis: Assessment and Plan: patient was placed on Zyvox and Zosyn secondary to renal impairment and both of these were renally dosed. The area on the left lower extremity was demarcated and appears to be receding this morning. White blood cell count 10.8 and patient has remained afebrile. (2) Acute kidney injury superimposed on chronic kidney disease: Assessment and Plan: patient follows with a building supplies salesperson retail, documentation on patient's baseline creatinine is 4.08 which is the same today, GFR 14; patient is not on dialysis Stage IV chronic kidney disease and chronic (3) Hyperkalemia: Assessment and Plan: resolved with IVF (4) Hypoglycemia: Assessment and Plan: resolved (5) Diabetes: Assessment and Plan: SSI insulin only, ha1c 6.3 (6) HTN (hypertension): Assessment and Plan: continue hydralazine, lisinopril, metoprolol (7) Morbid obesity: (8) Venous (peripheral) insufficiency: Assessment and Plan: history of multiple DVT's on coumadin therapy and therapeutic with INR 3.32 continue home dosage Plan patient is a full code patient is inpatient and is expected to stay more than 2 midnights continue coumadin therapy for DVT prophylaxis and is therapeutic Home with home health hopefully tomorrow, will transition to oral antibiotics
[2023-05-04] MEDS: PIPERACILLIN SODIUM/TAZOBACTAM 3.375 GM in 0.9 % SODIUM CHLORIDE 50 ML IV (16:20)
[2023-05-04] MEDS: WARFARIN SODIUM 5 MG TABLET PO (16:20)
[2023-05-04 19:40] LABS: Glucometer 126 mg/dL (74-106)
[2023-05-04] MEDS: ACETAMINOPHEN 325 MG TABLET 650 MG PO (20:35)
[2023-05-04] MEDS: PANTOPRAZOLE SODIUM 40 MG VIAL IV (21:29)
[2023-05-05] VITALS (24 sets, daily range): BP systolic 149–187; BP diastolic 68–73; PULSE 56–87; RESP 16–97; TEMP 36.1–36.5; O2SAT 20–99
[2023-05-05] MEDS: ALBUTEROL SULFATE 2.5 MG/3 ML VIAL NEB IH ×4 (04:13→20:00)
[2023-05-05] MEDS: PIPERACILLIN SODIUM/TAZOBACTAM 3.375 GM in 0.9 % SODIUM CHLORIDE 50 ML IV ×2 (04:16→18:48)
[2023-05-05 04:56] LABS: Basophils Percent Auto 0.5 % (0.2-2.0); Eosinophils Absolute Auto 0.2 10^3/uL (0.0-0.7); Eosinophils Percent Auto 2.6 % (0.9-7.0); Hemoglobin 10.6 g/dL (14.0-18.0); Immature Granulocytes Abs Auto 0.03 10^3/uL (0.00-0.03); Immature Granulocytes Pct Auto 0.4 % (0.0-0.5); Lymphocytes Absolute Auto 0.6 10^3/uL (1.2-3.8); Lymphocytes Percent Auto 8.2 % (20.5-60.0); Mean Corpuscular HGB Conc 31.2 g/dL (29.9-35.2); Mean Corpuscular Volume 89.7 fL (80.0-94.0); Mean Platelet Volume 9.7 fL (9.5-13.5); Monocytes Absolute Auto 0.7 10^3/uL (0.3-0.8); Monocytes Percent Auto 9.4 % (1.7-12.0); Neutrophils Absolute Auto 5.8 10^3/uL (1.4-6.5); Neutrophils Percent Auto 78.9 % (43.0-75.0); Platelet Count 157 10^3/uL (150-450); Red Blood Count 3.79 10^6/uL (4.70-6.10); Red Cell Distribution Width 16.6 % (11.0-15.0); White Blood Count 7.3 10^3/uL (4.0-11.0)
[2023-05-05 05:16] LABS: INR 4.06; Prothrombin Time 39.8 sec (9.0-11.6)
[2023-05-05 05:30] LABS: Alanine Aminotransferase 29 U/L (16-63); Albumin Globulin Ratio 0.3; Albumin Level 1.5 g/dL (3.4-5.0); Alkaline Phosphatase 84 U/L (46-116); Anion Gap 12.2; Aspartate Amino Transferase 48 U/L (15-37); Bilirubin Total 0.5 mg/dL (0.2-1.0); Carbon Dioxide 24.3 mmol/L (21.0-32.0); Chloride 106 mmol/L (98-107); Estimated GFR (African America 16 (>=60); Estimated GFR (Non-African Ame 13 (>=60); Globulin 4.4 g/dL; Glucose 115 mg/dL (74-106); Potassium 4.5 mmol/L (3.5-5.1); Sodium 138 mmol/L (136-145); Total Protein 5.9 g/dL (6.4-8.2)
[2023-05-05] MEDS: BUDESONIDE 0.5 MG/2 ML AMPULE NEB IH ×2 (10:01→20:00)
--- NOTE | 2023-05-05 10:14 | REH.PTDLY ---
Physical Therapy Daily Note PT Daily Note/Assess Start: 05/04/23 11:20 Freq: Status: Active Protocol: Document 05/05/23 10:10 ISIS (Rec: 05/05/23 10:14 [facility] [id number]) Physical Therapy Daily Note/Assessment Time In 09:12 Time Out 09:27 Pain Level 0 Subjective Pt sitting bedside. States he' s been getting up to the bathroom. Can get around just fine, but does agree to therapy. Therapeutic Exercise Minutes (minutes) 6 Therapeutic Exercise Units 0 Therapeutic Exercise Treatment Instructed in B LE seated exs at bedside 10x ea with AP, LAQ , marching, and hip abd to improve strength. Therapeutic Activity Minutes (minutes) 9 Therapeutic Activity Units 1 Chair Transfer Ability Standby Assistance Therapeutic Activity Comments Pt performs sit to stand transfers from bedside SBA. Gait training with RW CGA 85 feet with SOB noted, 1 brief standing rest break. Returns to room and SpO2 at 88%, rises to 93% after 2 mins. Total Therapy Minutes 15 Total Physical Therapy Units 1 Daily Note Summary Progressed gait distance with fatigue and SOB noted, drop in O2 to 88% but rises within 2 mins to 93%. Pt reports he has not been wearing O2 since yesterday, usually just wears CPAP at home.
--- NOTE | 2023-05-05 10:48 | CM.NOTE ---
Rounds made with Dr. Abbott, pt will have walk test today to see if home oxygen will be needed. Possible discharge this evening with [facility] to follow pt.
[2023-05-05 11:02] LABS: Glucometer 154 mg/dL (74-106)
[2023-05-05] MEDS: LINEZOLID IN DEXTROSE 5% 600 MG/300 ML PIGGYBACK 300 MG IV ×2 (11:28→20:43)
[2023-05-05] MEDS: METOPROLOL TARTRATE 25 MG TABLET 12.5 MG PO ×2 (11:28→20:39)
--- NOTE | 2023-05-05 11:54 | P.PN_ITS ---
Progress Note: Subjective Subjective Interval history: patient is a 68-year-old male with past medical history of type 2 diabetes insulin-dependent, chronic kidney disease stage IV, history of blood clots and is on Coumadin therapy, GERD. Patient presented too the Emergency Room yesterday with complaints of significant left lower extremity redness swelling and pain. He denies any fevers or chills but states that his left leg has been difficult to walk on. He gets most of his care from the [facility] and that's where he sees his primary care physician he also sees a [employer] consultant. He is a smoker and smokes about one pack per day but in the last week has cut down to half a pack per day. He has been using Lantus twenty units once a day and over the last four days has not taken any insulin because his sugars have been lower. The night prior to coming to the Emergency Room he did decide to take his Lantus and woke up and his sugars were in the 40s. They did give him some orange juice and some glucose to bring his sugars up. This morning he reports improvement of the symptoms of the redness and rash of his left lower extremity. He denies any fevers or chills. oxygen sats have decreased overnight despite wearing home CPAP. he reports he has a history of having to wear oxygen in the past but has not in quite a few years. He is a known smoker is trying his best to cut back. No other reported issues today. Exam Narrative Exam Narrative: General: Patient is alert, and oriented to person, place and time with normal affect, proper hygiene Skin: patient has bilateral stasis dermatitis with +1 pitting edema, erythema with blisters formation on the left lower extremity extending from below the knee to the top of left foot. the redness has receded from the area of demarcation and continues to improve Head: atraumatic, acephalic Eyes: PERRLA, no nystagmus present, conjunctiva clear, no scleral icterus Ears: normal gross auditory acuity Nose: symmetric, no discharge, no maxillary or frontal sinus tenderness Heart: Normal rate and rhythm, no murmurs/rubs/gallops Lungs: audible wheezes, no crackles and normal breath sounds all lung becerra Abdomen: Normal audible bowel sounds, no distension, No palpable masses, no organomegaly, no rebound/guarding/ or rigidity Musculoskeletal: muscle atrophy noted, ROM is limited due to being in hospital bed, no swelling bilateral lower extremities Vascular: Normal carotid, radial, femoral, posterior tibial, and dorsalis pedis pulses Lymph: no supraclavicular, axillary, or anterior/posterior cervical adenopathy Neuro: CN II-X grossly intact, normal sensation upper and lower extremities Constitutional Vital Signs - 24 hr 05/04/23 14:00 05/04/23 13:12 05/04/23 14:04 Temperature 98.0 F Pulse Rate 65 85 65 Respiratory Rate 20 Blood Pressure [Left Arm] 145/74 H Pulse Oximetry 90 L Oxygen Delivery Method Room Air 05/04/23 15:47 05/04/23 16:30 05/04/23 16:31 Temperature Pulse Rate 75 61 Respiratory Rate Blood Pressure [Left Arm] Pulse Oximetry 92 L 92 L Oxygen Delivery Method Room Air 05/04/23 18:22 05/04/23 19:32 05/04/23 19:42 Temperature 97 F L Pulse Rate 63 67 66 Respiratory Rate 24 Blood Pressure [Left Arm] 179/71 H Pulse Oximetry 94 L Oxygen Delivery Method Room Air 05/04/23 20:10 05/04/23 20:29 05/04/23 20:10 Temperature Pulse Rate 63 65 Respiratory Rate 18 20 Blood Pressure [Left Arm] Pulse Oximetry 92 L 94 L 92 L Oxygen Delivery Method Room Air 05/04/23 21:41 05/04/23 23:27 05/05/23 01:21 Temperature Pulse Rate 57 L 52 L 56 L Respiratory Rate Blood Pressure [Left Arm] Pulse Oximetry Oxygen Delivery Method 05/05/23 03:15 05/05/23 03:21 05/05/23 04:13 Temperature Pulse Rate 56 L 57 L 63 Respiratory Rate 18 Blood Pressure [Left Arm] Pulse Oximetry 94 L 94 L Oxygen Delivery Method 05/05/23 04:23 05/05/23 05:44 05/05/23 05:47 Temperature 97 F L Pulse Rate 64 65 65 Respiratory Rate 20 20 Blood Pressure [Left Arm] 154/68 H Pulse Oximetry 95 92 L Oxygen Delivery Method Home BIPAP / CPAP 05/05/23 07:57 05/05/23 09:58 05/05/23 10:03 Temperature Pulse Rate 79 78 61 Respiratory Rate 16 Blood Pressure [Left Arm] Pulse Oximetry 90 L Oxygen Delivery Method 05/05/23 10:23 05/05/23 11:49 Temperature Pulse Rate 68 Respiratory Rate Blood Pressure [Left Arm] Pulse Oximetry 88 L Oxygen Delivery Method Room Air Progress Note: Objective Labs Labs: Short CBC 05/05/23 Range/Units 04:14 WBC 7.3 (4.0-11.0) 10^3/uL Hgb 10.6 L (14.0-18.0) g/dL Hct 34.0 L (42.0-54.0) % Plt Count 157 (150-450) 10^3/uL BMP 05/05/23 04:15 Sodium 138 Potassium 4.5 Chloride 106 Carbon Dioxide 24.3 BUN 48.0 H Creatinine 4.37 H Glucose 115 H Calcium 8.0 L Liver Function 05/05/23 Range/Units 04:15 Total Bilirubin 0.5 (0.2-1.0) mg/dL AST 48 H (15-37) U/L ALT 29 (16-63) U/L Alkaline Phosphatase 84 (46-116) U/L Albumin 1.5 L (3.4-5.0) g/dL Progress Note: A&P Assessment and Plan (1) Left leg cellulitis: Assessment and Plan: patient was placed on Zyvox and Zosyn secondary to renal impairment and both of these were renally dosed. The area on the left lower extremity was demarcated and appears to be improving each day. White blood cell count normal and patient has remained afebrile.probable discharge home tomorrow with home health (2) Acute and chronic respiratory failure with hypoxia: Assessment and Plan: most likely underlying chronic obstructive pulmonary disease, in combination with his obstructive sleep apnea. Continue DuoNeb this and Pap therapy will do walk trial and see if he would benefit from home oxygen. (3) Acute kidney injury superimposed on chronic kidney disease: Assessment and Plan: patient follows with a [employer] consultant, documentation on patient's baseline creatinine is 4.08 which is the same today, GFR 14; patient is not on dialysis Stage IV chronic kidney disease? and chronic (4) Hyperkalemia: Assessment and Plan: resolved with IVF (5) Hypoglycemia: Assessment and Plan: resolved (6) Diabetes: Assessment and Plan: ?SSI insulin only, ha1c 6.3 (7) HTN (hypertension): Assessment and Plan: continue hydralazine, lisinopril, metoprolol (8) Morbid obesity: Assessment and Plan: history of multiple DVT's on coumadin therapy and therapeutic with INR 4.06 will hold tomorrow dosage. (9) Venous (peripheral) insufficiency: Plan patient is a full code patient is inpatient and is expected to stay more than 2 midnights continue coumadin therapy for DVT prophylaxis and is therapeutic Home with home health hopefully tomorrow, will transition to oral antibiotics
[2023-05-05 16:13] LABS: Glucometer 107 mg/dL (74-106)
[2023-05-05] MEDS: WARFARIN SODIUM 5 MG TABLET PO (18:49)
[2023-05-05 20:02] LABS: Glucometer 96 mg/dL (74-106)
[2023-05-05] MEDS: PANTOPRAZOLE SODIUM 40 MG VIAL IV (21:01)
[2023-05-06] VITALS (14 sets, daily range): BP systolic 155–181; BP diastolic 78; PULSE 61–78; RESP 18–20; TEMP 36.4; O2SAT 90–96
[2023-05-06] MEDS: ALBUTEROL SULFATE 2.5 MG/3 ML VIAL NEB IH ×2 (04:23→10:15)
[2023-05-06] MEDS: PIPERACILLIN SODIUM/TAZOBACTAM 3.375 GM in 0.9 % SODIUM CHLORIDE 50 ML IV (04:54)
[2023-05-06 05:01] LABS: Basophils Percent Auto 0.6 % (0.2-2.0); Eosinophils Absolute Auto 0.2 10^3/uL (0.0-0.7); Eosinophils Percent Auto 2.8 % (0.9-7.0); Hematocrit 36.2 % (42.0-54.0); Hemoglobin 11.1 g/dL (14.0-18.0); Immature Granulocytes Abs Auto 0.03 10^3/uL (0.00-0.03); Immature Granulocytes Pct Auto 0.4 % (0.0-0.5); Lymphocytes Absolute Auto 0.7 10^3/uL (1.2-3.8); Lymphocytes Percent Auto 9.8 % (20.5-60.0); Mean Corpuscular HGB Conc 30.7 g/dL (29.9-35.2); Mean Corpuscular Hemoglobin 27.8 pg (25.9-34.0); Mean Corpuscular Volume 90.5 fL (80.0-94.0); Mean Platelet Volume 9.4 fL (9.5-13.5); Monocytes Absolute Auto 0.6 10^3/uL (0.3-0.8); Monocytes Percent Auto 9.2 % (1.7-12.0); Neutrophils Absolute Auto 5.3 10^3/uL (1.4-6.5); Neutrophils Percent Auto 77.2 % (43.0-75.0); Platelet Count 169 10^3/uL (150-450); Red Cell Distribution Width 16.6 % (11.0-15.0); White Blood Count 6.9 10^3/uL (4.0-11.0)
[2023-05-06 05:23] LABS: Alanine Aminotransferase 47 U/L (16-63); Albumin Globulin Ratio 0.3; Albumin Level 1.6 g/dL (3.4-5.0); Alkaline Phosphatase 98 U/L (46-116); Anion Gap 12.8; Aspartate Amino Transferase 50 U/L (15-37); BUN Creatinine Ratio 11.1; Bilirubin Total 0.5 mg/dL (0.2-1.0); Calcium 8.1 mg/dL (8.5-10.1); Carbon Dioxide 22.9 mmol/L (21.0-32.0); Chloride 106 mmol/L (98-107); Estimated GFR (African America 16 (>=60); Estimated GFR (Non-African Ame 13 (>=60); Globulin 4.7 g/dL; Glucose 114 mg/dL (74-106); Potassium 4.7 mmol/L (3.5-5.1); Sodium 137 mmol/L (136-145); Total Protein 6.3 g/dL (6.4-8.2)
[2023-05-06 05:53] LABS: INR 5.77; Prothrombin Time 55.4 sec (9.0-11.6)
[2023-05-06] MEDS: HYDRALAZINE HCL 20 MG/ML VIAL 10 MG IVP (06:18)
[2023-05-06] MEDS: LINEZOLID IN DEXTROSE 5% 600 MG/300 ML PIGGYBACK 300 MG IV (09:14)
[2023-05-06] MEDS: CHLORTHALIDONE 25 MG TABLET 50 MG PO (09:27)
[2023-05-06] MEDS: METOPROLOL TARTRATE 25 MG TABLET 12.5 MG PO (09:27)
[2023-05-06] MEDS: BUDESONIDE 0.5 MG/2 ML AMPULE NEB IH (10:07)
[2023-05-06] MEDS: 0.9 % SODIUM CHLORIDE 250 ML 25 ML IV (10:30)
[2023-05-06 11:14] LABS: Glucometer 179 mg/dL (74-106)
--- NOTE | 2023-05-06 11:38 | CM.NOTE ---
Rounds made with Dr. Abbott, pt ok to d/c to home today. Pt will go home with HH and also home oxygen.
--- NOTE | 2023-05-06 11:41 | SWNOTE1 ---
FRANKLIN spoke with pt about home oxygen and the companies, SW let him know that [facility] does take his insurance, pt is alright with using this company. FRANKLIN sent referral.
--- NOTE | 2023-05-06 11:49 | PM.DS1 ---
DS: Providers Provider Date of admission: 05/02/23 18:10 Primary care physician: Non-Staff Physician, Attending physician on admission: Jeovanny Lopes Consults: 05/02/23 17:37 Occupational Therapy Eval and Treat Routine Physical Therapy Eval and Treat Routine Attending physician on discharge: Eulalia Abbott DS: Diagnosis Discharge Diagnosis (1) Left leg cellulitis: Assessment and plan: patient was placed on Zyvox and Zosyn secondary to renal impairment and both of these were renally dosed. The area on the left lower extremity was demarcated and appears to be improving each day. White blood cell count normal and patient has remained afebrile. Discharge home today with home health. Will be placed on Augmentin 800mg/125 BID x 10 days and Linezolid 600mg daily x 10 days due to renal impairment and coumadin. (2) Acute and chronic respiratory failure with hypoxia: Assessment and plan: underlying chronic obstructive pulmonary disease, in combination with his obstructive sleep apnea. Continue DuoNeb this and pep therapy walk trial showed pulse ox of 87% on room air, so he would benefit from home oxygen at 3L NC continuous. Patient instructed to not smoke while using oxygen . (3) Acute kidney injury superimposed on chronic kidney disease: Assessment and plan: patient follows with a electrician telephone, documentation on patient's baseline creatinine is 4.08 GFR 14; patient is not on dialysis Stage IV chronic kidney disease? and chronic, renally dosed antibiotics (4) Hyperkalemia: Assessment and plan: resolved with IVF (5) Hypoglycemia: Assessment and plan: resolved, may restart home glipizide at discharge (6) Diabetes: Assessment and plan: SSI insulin only, ha1c 6.3, resume glipizide (7) HTN (hypertension): Assessment and plan: continue hydralazine, lisinopril, metoprolol (8) Morbid obesity: (9) Venous (peripheral) insufficiency: Assessment and plan: history of multiple DVT's on coumadin therapy and INR 5.776 hold until 05/08/23, then restart, recheck INR next week, no current bleeding issues DS: Summary Time Spent with Patient Time attestation: Total time spent providing and/or coordinating discharge services: Exam Narrative Exam Narrative: General: Patient is alert, and oriented to person, place and time with normal affect, proper hygiene Skin: patient has bilateral stasis dermatitis with +1 pitting edema, erythema with blisters formation on the left lower extremity extending from just below the knee to the top of left foot through the ends of all toes/heel. the redness has receded from the area of demarcation and continues to improve Head: atraumatic, acephalic Eyes: PERRLA, no nystagmus present, conjunctiva clear, no scleral icterus Ears: normal gross auditory acuity Nose: symmetric, no discharge, no maxillary or frontal sinus tenderness Heart: Normal rate and rhythm, no murmurs/rubs/gallops Lungs: audible wheezes, no crackles and normal breath sounds all lung becerra Abdomen: Normal audible bowel sounds, no distension, No palpable masses, no organomegaly, no rebound/guarding/ or rigidity Musculoskeletal: muscle atrophy noted, ROM is limited due to being in hospital bed, +2 pitting/swelling bilateral lower extremities Vascular: Normal carotid, radial, femoral, posterior tibial, and dorsalis pedis pulses Lymph: no supraclavicular, axillary, or anterior/posterior cervical adenopathy Neuro: CN II-X grossly intact, normal sensation upper and lower extremities Constitutional Vital Signs - 24 hr 05/05/23 14:18 05/05/23 14:00 05/05/23 15:45 Temperature 97.7 F Pulse Rate 63 80 87 Respiratory Rate 22 Blood Pressure Blood Pressure [Left Arm] 149/73 H Pulse Oximetry 95 88 L Oxygen Delivery Method Room Air Oxygen Delivery Flow Rate 05/05/23 15:47 05/05/23 16:00 05/05/23 16:15 Temperature Pulse Rate 78 76 Respiratory Rate 18 20 Blood Pressure Blood Pressure [Left Arm] Pulse Oximetry 96 96 Oxygen Delivery Method Nasal Cannula Oxygen Delivery Flow Rate 2 05/05/23 16:26 05/05/23 19:41 05/05/23 20:00 Temperature Pulse Rate 63 63 62 Respiratory Rate 97 H Blood Pressure Blood Pressure [Left Arm] Pulse Oximetry 20 L Oxygen Delivery Method Oxygen Delivery Flow Rate 05/05/23 20:00 05/05/23 20:19 05/05/23 20:37 Temperature 97.6 F Pulse Rate 65 64 Respiratory Rate 20 20 Blood Pressure Blood Pressure [Left Arm] 187/73 H Pulse Oximetry 97 99 93 L Oxygen Delivery Method Room Air Nasal Cannula Oxygen Delivery Flow Rate 2 2 05/05/23 21:43 05/05/23 23:44 05/06/23 02:45 Temperature Pulse Rate 62 62 68 Respiratory Rate Blood Pressure Blood Pressure [Left Arm] Pulse Oximetry Oxygen Delivery Method Oxygen Delivery Flow Rate 05/06/23 04:23 05/06/23 04:23 05/06/23 04:33 Temperature Pulse Rate 66 68 Respiratory Rate 20 20 Blood Pressure Blood Pressure [Left Arm] Pulse Oximetry 92 L 92 L 92 L Oxygen Delivery Method Nasal Cannula Oxygen Delivery Flow Rate 2 05/06/23 04:00 05/06/23 05:16 05/06/23 05:59 Temperature 97.5 F L Pulse Rate 68 62 70 Respiratory Rate 20 Blood Pressure Blood Pressure [Left Arm] 181/78 H Pulse Oximetry 90 L Oxygen Delivery Method Nasal Cannula Oxygen Delivery Flow Rate 2 05/06/23 06:18 05/06/23 06:44 05/06/23 08:24 Temperature Pulse Rate 78 Respiratory Rate Blood Pressure 181/78 H Blood Pressure [Left Arm] 155/78 H Pulse Oximetry Oxygen Delivery Method Oxygen Delivery Flow Rate 05/06/23 10:15 05/06/23 10:18 05/06/23 10:22 Temperature Pulse Rate 67 Respiratory Rate 18 Blood Pressure Blood Pressure [Left Arm] Pulse Oximetry 96 96 96 Oxygen Delivery Method Nasal Cannula Nasal Cannula Oxygen Delivery Flow Rate 2 3 05/06/23 10:34 Temperature Pulse Rate 73 Respiratory Rate Blood Pressure Blood Pressure [Left Arm] Pulse Oximetry Oxygen Delivery Method Oxygen Delivery Flow Rate DS: Data Data Completed and Pending Labs on day of discharge: Labs from last 24 hours 05/06/23 05/06/23 05/05/23 11:13 04:42 19:54 WBC 6.9 RBC 4.00 L Hgb 11.1 L Hct 36.2 L MCV 90.5 MCH 27.8 MCHC 30.7 RDW 16.6 H Plt Count 169 MPV 9.4 L Neut % (Auto) 77.2 H Lymph % (Auto) 9.8 L [place] % (Auto) 9.2 Eos % (Auto) 2.8 Baso % (Auto) 0.6 Neut # (Auto) 5.3 Lymph # (Auto) 0.7 L [place] # (Auto) 0.6 Eos # (Auto) 0.2 Baso # (Auto) 0.0 Abs Immat Gran (auto) 0.03 Imm/Tot Granulo (auto) 0.4 PT 55.4 H* INR 5.77 H* Sodium 137 Potassium 4.7 Chloride 106 Carbon Dioxide 22.9 Anion Gap 12.8 BUN 51.0 H Creatinine 4.58 H Est GFR ( Amer) 16 L Est GFR (Non-Af Amer) 13 L BUN/Creatinine Ratio 11.1 Glucose 114 H Calcium 8.1 L Total Bilirubin 0.5 AST 50 H ALT 47 Alkaline Phosphatase 98 Total Protein 6.3 L Albumin 1.6 L Globulin 4.7 Albumin/Globulin Ratio 0.3 POC Glucose 179 H 96 05/05/23 16:12 WBC RBC Hgb Hct MCV MCH MCHC RDW Plt Count MPV Neut % (Auto) Lymph % (Auto) [place] % (Auto) Eos % (Auto) Baso % (Auto) Neut # (Auto) Lymph # (Auto) [place] # (Auto) Eos # (Auto) Baso # (Auto) Abs Immat Gran (auto) Imm/Tot Granulo (auto) PT INR Sodium Potassium Chloride Carbon Dioxide Anion Gap BUN Creatinine Est GFR ( Amer) Est GFR (Non-Af Amer) BUN/Creatinine Ratio Glucose Calcium Total Bilirubin AST ALT Alkaline Phosphatase Total Protein Albumin Globulin Albumin/Globulin Ratio POC Glucose 107 H Preliminary micro results at discharge 05/02/23 15:18 Blood Culture Result 1 - Preliminary Blood NO GROWTH AT 36-48 HOURS. FINAL TO FOLLOW. 05/02/23 15:12 - Preliminary Blood NO GROWTH AT 36-48 HOURS. FINAL TO FOLLOW. Discharge Plan Discharge Disposition: Home Health Service Discharge Medications: New amoxicillin-pot clavulanate 875-125 mg tablet 1 tab PO BID 10 Days Qty: 20 0RF linezolid [Zyvox] 600 mg tablet 600 mg PO ONCE 10 Days Qty: 10 0RF Continued budesonide-formoterol [Symbicort] 80-4.5 mcg/actuation HFA aerosol inhaler 2 inh inhalation Q12H Hold Instructions: not tAKING glipizide 10 mg tablet 20 mg PO DAILY lisinopril 40 mg tablet 40 mg PO DAILY metoprolol tartrate 25 mg tablet 12.5 mg PO BID torsemide [Soaanz] 20 mg tablet 20 mg PO DAILY hydralazine 10 mg tablet 10 mg PO BID atorvastatin 40 mg tablet 40 mg PO DAILY Iro-Plex (iron polysaccharide) See Rx Instructions .ROUTE .COMPLEX Rx Instructions: 150; Held warfarin 5 mg tablet 5 mg PO DAILY Hold Instructions: Resume on 05/08/23. Patient Comments: take 2.5 mg on mondays and 5 mg on , tue, , tue, tue Activity: ambulate only with your walker Diet: advance to your usual diet, diabetic diet, low fat, low cholesterol and low salt diet Patient Instructions: Cellulitis (GEN) Forms: Portal Instructions Follow Up Appointments: Coumadin clinic next week for recheck INR-Hold coumadin today (05/06/23) and resume on tuesday (05/08/23) Nephrology 1-2 weeks Pcp 5-7 days
--- NOTE | 2023-05-06 11:59 | PT.DAILY ---
Physical Therapy Daily Note PT Daily Note/Assess Start: 05/04/23 11:20 Freq: Status: Active Protocol: Document 05/06/23 11:10 JUAN (Rec: 05/06/23 11:59 JUAN [id number]) Physical Therapy Daily Note/Assessment Time In/Time Out Time In 11:10 Time Out 11:25 Pain In Pain N/A Pain Out Pain N/A Subjective Subjective Sitting EOB unsupported upon arrival. reports DC today to home with HH and O2. Therapeutic Exercise Time Therapeutic Exercise Minutes (minutes) 5 Therapeutic Exercise Units 0 Therapeutic Exercise Treatment Therapeutic Exercise Treatment Seated AP, LAQ, marches and add squeezes 10x ea to improve functional mobility prior to gait. Therapeutic Activity Time Therapeutic Activity Minutes (minutes) 8 Therapeutic Activity Units 1 Therapeutic Activity Treatment Chair Transfer Ability Standby Assistance Therapeutic Activity Comments Needs help donning shoes. O2 95% prior to activity. Sit> stand to RW SBA. Pt amb 80'x2 with RW with 1x standing rest break -on 2L O2. SPO2 91% with standing rest break. Returned to room to sitting EOB - pillowcase turner present. Total Physical Therapy Time Total Therapy Minutes 13 Total Physical Therapy Units 1 Summary Daily Note Summary Min improvement with gait endurance but cont to fatigue with activity with O2 dropping to low 90's.
--- NOTE | 2023-05-06 15:08 | SWNOTE1 ---
Pt's oxygen is all set to, [facility] 3 liters. Pt is being discharged today. SW faxed over discharge orders to [address] as well.
--- NOTE | 2023-05-11 13:22 | CM.DCFOLLOWU ---
3 discharge follow up calls attempted, no answer. 1st attempt 05/09/2023 2nd attempt 05/10/23 3rd attempt 05/11/23
== END 2023-05-06 14:20 | disposition home health service (06) | DRG 602 ==
LOC: ER 16:29 → MS 18:22
PROVIDERS: Admitting Provider Internal Medicine; Emergency Provider Emergency Medicine; Visit Provider Family Medicine
DX: L03.116 Cellulitis of left lower limb (principal); J96.21 Acute and chronic respiratory failure with hypoxia; N17.9 Acute kidney failure, unspecified; Z68.42 Body mass index [BMI] 45.0-49.9, adult; N18.4 Chronic kidney disease, stage 4 (severe); E87.5 Hyperkalemia; E11.649 Type 2 diabetes mellitus with hypoglycemia without coma; E66.01 Morbid (severe) obesity due to excess calories; I87.2 Venous insufficiency (chronic) (peripheral); J44.9 Chronic obstructive pulmonary disease, unspecified; G47.33 Obstructive sleep apnea (adult) (pediatric); E11.22 Type 2 diabetes mellitus with diabetic chronic kidney disease; I12.9 Hypertensive chronic kidney disease with stage 1 through stage 4 chronic kidney disease, or unspecified chronic kidney disease; K21.9 Gastro-esophageal reflux disease without esophagitis; Z79.01 Long term (current) use of anticoagulants; F17.210 Nicotine dependence, cigarettes, uncomplicated; Z86.718 Personal history of other venous thrombosis and embolism; Z99.89 Dependence on other enabling machines and devices; Z79.4 Long term (current) use of insulin; Z79.84 Long term (current) use of oral hypoglycemic drugs; Z91.048 Other nonmedicinal substance allergy status
CPT/HCPCS: 36415; 36416; 36592; 80053; 82948; 83036; 83605; 85025; 85610; 85730; 87040; 93971; 94640; 94667; 94668; 94761; 96365; 96366; 96367; 96368; 96375; 96376; 97161; 97165; 97530; 97535; 99285; C1887; J2020; Q3014